=== PATIENT | male | born 1965 | race Caucasian/White ===

== ENCOUNTER 2021-12-29 03:13 | Emergency (ER) | payer OTHER ==
[~2021-12-29] VITALS: Ht 175.3 cm; Wt 88.5 kg
[~2021-12-29 03:13] MED LIST: ESCI20 PO; LOVA20 PO; QUET25 PO
[2021-12-29] MEDS ORDERED: IBUP600 PO (04:22)
[2021-12-29] MEDS ORDERED: CYCL10 PO (04:22)
== END 2021-12-29 05:22 | disposition home or self-care (01) ==
LOC: ER 03:13
DX: S39.012A Strain of muscle, fascia and tendon of lower back, initial encounter (principal); X50.0XXA Overexertion from strenuous movement or load, initial encounter
CPT/HCPCS: 96372; 99283-25; A9270; J1885

== ENCOUNTER 2022-04-02 06:24 | Emergency (ER) | payer OTHER ==
[~2022-04-02] VITALS: Ht 177.8 cm; Wt 86.2 kg
[~2022-04-02 06:24] MED LIST changes: +CYCL10 PO; +IBUP600 PO
[2022-04-02] MEDS ORDERED: LIDO700A20 TOP (07:31)
[2022-04-02] MEDS ORDERED: Robaxin750 MG PO (07:31)
[2022-04-02] MEDS ORDERED: IBUP600 PO (07:31)
== END 2022-04-02 09:01 | disposition home or self-care (01) ==
LOC: ER 06:24
DX: S39.012A Strain of muscle, fascia and tendon of lower back, initial encounter (principal); X58.XXXA Exposure to other specified factors, initial encounter; Y92.9 Unspecified place or not applicable; Z79.899 Other long term (current) drug therapy
CPT/HCPCS: 99283; A9270